=== PATIENT | female | born 1980 ===

== ENCOUNTER 2022-01-12 15:59 | Emergency (ER) | payer OTHER ==
[~2022-01-12] VITALS: Ht 157.5 cm; Wt 75.0 kg
[2022-01-12] MEDS ORDERED: IBUPROFEN 600 MG TABLET PO ONE (18:30)
[2022-01-12] MEDS ORDERED: ACETAMINOPHEN 500 MG TABLET PO ONE (18:30)
[2022-01-12] MEDS ORDERED: PERTUSS(ACELL),DIPH,TET VAC/PF 0.5 ML SYRINGE IM. ONE (18:30)
[2022-01-12] MEDS ORDERED: BACITRACIN 0.9 GM PACKET OINTMENT TP ONE (18:30)
[2022-01-12] MEDS ORDERED: LIDOCAINE 1% 10 ML VIAL INJ ONE (18:30)
[2022-01-12] MEDS ORDERED: BACI28OI29 TP (18:58)
[2022-01-12] MEDS ORDERED: IBUP-1554 PO (18:58)
[2022-01-12 19:20] VITALS: BP 115/78
== END 2022-01-12 19:22 | disposition home or self-care (01) ==
LOC: EMS 16:05
DX: S61.210A Laceration without foreign body of right index finger without damage to nail, initial encounter (principal); W26.0XXA Contact with knife, initial encounter; Y93.E9 Activity, other interior property and clothing maintenance; Y92.098 Other place in other non-institutional residence as the place of occurrence of the external cause; Y99.8 Other external cause status
CPT/HCPCS: 99283; 90715; 90471; 12002; J3490; 99284